=== PATIENT | male | born 2000 | race African-American/Black ===

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

== ENCOUNTER 2019-02-13 11:53 | Emergency (ER) | payer SELFPAY ==
[2019-02-13] MEDS ORDERED: Ketorolac 10 MG Tab PO ONE (11:54)
[2019-02-13] MEDS ORDERED: Cyclobenzaprine 10 MG Tab PO ONE (11:54)
[2019-02-13 12:05] VITALS: BP 134/59; PULSE 77
--- NOTE | 2019-02-13 12:38 | EDM.PDOC ---
ED HPI GENERAL MEDICAL PROBLEM - General Chief Complaint: Upper Extremity Injury/Pain Stated Complaint: L SIDE PAIN Time Seen by Provider: 02/13/19 12:34 Source of Information: Reports: Patient History Limitations: Reports: No Limitations - History of Present Illness INITIAL COMMENTS - FREE TEXT/NARRATIVE: 18 yo with pain on the right middle back since this morning. Moderate pain with no trauma,does not improve with Motrin. Worse with deep breathing or movement. No fever,cough or urinary symptoms left back rib Pain Score (Numeric/FACES): 9 - Related Data Allergies Allergy/AdvReac Type Severity Reaction Status Date / Time amoxicillin Allergy Rash Verified 11/18/17 08:50 pets Allergy Sneezing Uncoded 11/18/17 08:50 Home Meds: Home Meds Albuterol Sulfate [Proair Hfa] 8.5 gm IH Q4HR PRN #1 hfa.aer.ad 06/14/15 [Rx] Albuterol [Proventil HFA] 2 puff INH Q4H PRN #1 inhaler 11/18/17 [Rx] Albuterol [Proventil HFA] 200 puff INH Q2H PRN #1 inhaler 11/18/17 [Rx] Azithromycin [Zithromax] 250 mg PO DAILY #6 tab 11/18/17 [Rx] Ondansetron [Zofran ODT] 4 mg PO Q6H PRN #4 tab.dis 11/18/17 [Rx] predniSONE [Prednisone] 40 mg PO DAILY #8 tablet 11/18/17 [Rx] Past Medical History - Past Health History Medical/Surgical History: Denies Medical/Surgical History Respiratory History: Reports: Asthma Social & Family History - Family History Family Medical History: Noncontributory - Tobacco Use Smoking Status *Q: Former Smoker Used Tobacco, but Quit: Yes Month/Year Tobacco Last Used: september 2018 Second Hand Smoke Exposure: No - Caffeine Use Caffeine Use: Reports: Soda - Recreational Drug Use Recreational Drug Use: No Review of Systems - Review of Systems Review Of Systems: Comprehensive ROS is negative, except as noted in HPI. ED EXAM, GENERAL - Physical Exam Exam: See Below Exam Limited By: No Limitations General Appearance: Alert, WD/WN, No Apparent Distress Respiratory/Chest: No Respiratory Distress, Lungs Clear Cardiovascular: Normal Peripheral Pulses Back Exam: Normal Inspection, Full Range of Motion, CVA Tenderness (R), Paraspinal Tenderness Neurological: Alert Course - Vital Signs Last Recorded V/S: Last Vital Signs Temp 97.8 F 02/13/19 12:00 Pulse 77 02/13/19 12:00 Resp 17 02/13/19 12:00 BP 134/59 L 02/13/19 12:00 Pulse Ox 100 02/13/19 12:00 - Orders/Labs/Meds Orders: Active Orders 24 hr Category Date Time Status Ribs 2V w Chest Rt [CR] Stat Exams 02/13/19 12:03 Taken Labs: Laboratory Tests 02/13/19 Range/Units 12:06 D-Dimer, Quantitative < 0.19 (0.0-0.59) mg/LFEU Departure - Departure Time of Disposition: 12:38 Disposition: Home, Self-Care 01 Condition: Good Clinical Impression: Back muscle spasm - Discharge Information Referrals: Anuj Martell MD [Primary Care Provider] - Sepsis Event Note - Evaluation Sepsis Screening Result: No Definite Risk - Focused Exam Vital Signs: Vital Signs Temp Pulse Resp BP Pulse Ox 02/13/19 12:00 97.8 F 77 17 134/59 L 100 Date Exam was Performed: 02/13/19 Time Exam was Performed: 12:34 - Problem List & Annotations (1) Muscle soreness SNOMED Code(s): 880572567, 441704756 Code(s): M79.10 - MYALGIA, UNSPECIFIED SITE Status: Acute Current Visit: Yes - Problem List Review Problem List Initiated/Reviewed/Updated: Yes - My Orders Last 24 Hours: My Active Orders 02/13/19 12:03 Ribs 2V w Chest Rt [CR] Stat - Assessment/Plan Last 24 Hours: My Active Orders 02/13/19 12:03 Ribs 2V w Chest Rt [CR] Stat Plan: Reviewed Xray and D dimer neg. DC home iwth NSAIDs,central acting muscle relaxants
--- NOTE | 2019-02-14 16:26 | CR ---
INDICATION: Left rib pain. Trauma. LEFT RIBS WITH CHEST: PA view of the chest with 5 additional views of the left ribs were obtained and revealed no evidence of an active infiltrate, effusion, contusion or pneumothorax. A fracture, dislocation or other definite bony abnormality was not seen. IMPRESSION: No active disease. MTDD
== END 2019-02-13 12:43 | disposition home or self-care (01) ==
LOC: FB.ED 11:53
DX: M62.830 Muscle spasm of back (principal); Z87.891 Personal history of nicotine dependence; J45.909 Unspecified asthma, uncomplicated; Z88.0 Allergy status to penicillin; Z79.899 Other long term (current) drug therapy; Z88.1 Allergy status to other antibiotic agents; Z91.09 Other allergy status, other than to drugs and biological substances
CPT/HCPCS: 36415; 71101; 85379; 99283; A9270